=== PATIENT | male | born 1995 | race Two or more races ===

== ENCOUNTER 2022-12-20 17:35 | Emergency (ER) | payer OTHER ==
[~2022-12-20] VITALS: Ht 188 cm; Wt 92.1 kg
[2022-12-20 18:56] VITALS: BP 123/57; PULSE 82; RESP 18; TEMP 97.7; O2SAT 97
[2022-12-20 19:26] LABS: Urine Bacteria NONE SEEN /hpf (None Seen); Urine Blood Negative /uL (Negative); Urine Clarity Clear (Clear); Urine Color Yellow (Yellow); Urine Mucus FEW (None Seen); Urine Protein, UAD 1+ (Negative); Urine Specific Gravity 1.034 (1.001-1.035); Urine WBC 1 /hpf (0 - 3)
== END 2022-12-20 19:45 | disposition home or self-care (01) ==
LOC: ER 17:35
DX: N50.811 Right testicular pain (principal)
CPT/HCPCS: 76870; 81001